=== PATIENT | male | born 1965 | race American Indian/Alaskan Native ===

== ENCOUNTER 2021-11-04 02:38 | Emergency (ER) | payer SELFPAY ==
[2021-11-04] MEDS ORDERED: LIDOCAINE 1%/EPINEPHRINE 1:100,000 VIAL (20 ML) INFILTRATI ONE (06:14)
[2021-11-04] MEDS ORDERED: LIDOCAINE (1%) 10 MG/1 ML VIAL 20 ML MDV INFILTRATI ONE (08:20)
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
[2021-11-04] MEDS ORDERED: TETANUS,DIPHTHERIA TOXOID ADULT 0.5 ML INJ IM ONE (11:00)
[2021-11-04] MEDS ORDERED: TETANUS,DIPH,PERTUSS(ACELL) VACCINE 0.5 ML SYRINGE IM ONE (11:06)
[2021-11-04 11:32] VITALS: BP 145/90
== END 2021-11-04 11:32 | disposition home or self-care (01) ==
LOC: ED 02:38
DX: S41.011A Laceration without foreign body of right shoulder, initial encounter (principal); F17.200 Nicotine dependence, unspecified, uncomplicated; F10.20 Alcohol dependence, uncomplicated; Y08.89XA Assault by other specified means, initial encounter; Y93.89 Activity, other specified; Y92.89 Other specified places as the place of occurrence of the external cause; Y99.8 Other external cause status
CPT/HCPCS: 12014; 90471; 90714; 96372; 99283; J3490

== ENCOUNTER 2021-12-12 18:48 | Emergency (ER) | payer SELFPAY ==
[2021-12-13 00:45] LABS: Basophils % (Auto) 0.8 % (0.0-1.8); Eosinophils # (Auto) 0.2 K/mm3 (0.0-0.4); Hematocrit 40.3 % (35.5-45.6); Lymphocytes # (Auto) 1.4 K/mm3 (1.2-5.4); Mean Corpuscular HGB Conc 32 % (32-34); Mean Corpuscular Volume 97 fl (84-94); Monocytes # (Auto) 0.5 K/mm3 (0.0-0.8); Monocytes % (Auto) 9.7 % (0.0-7.3); Platelet Count 216 K/mm3 (140-440); Red Blood Count 4.14 M/mm3 (3.65-5.03); Red Cell Distribution Width 14.1 % (13.2-15.2)
[2021-12-13 00:46] VITALS: BP 133/75
[2021-12-13 00:52] LABS: Alanine Aminotransferase 31 units/L (7-56); Albumin 3.9 g/dL (3.9-5); BUN/Creatinine Ratio 19; Blood Urea Nitrogen 21 mg/dL (9-20); Calcium 8.6 mg/dL (8.4-10.2); Hemolysis Index 15
[2021-12-13 01:14] LABS: Mucus,Urine FEW /HPF
[2021-12-13 01:28] LABS: Color,Urine Yellow (Yellow)
--- NOTE | 2021-12-13 01:47 | Emergency Department Report ---
ED Medical Clearance HPI - General Chief complaint: Medical Clearance Stated complaint: IRON Time Seen by Provider: 12/13/21 00:00 Source: patient Mode of arrival: Ambulatory - History of Present Illness Initial comments: 55 yo black male with no pmh presents to ed for evaluation of possible low hct. He states that he went to give plasma, and when they tested his hct, it was low, so he came here for further evaluation. He denies any c/o at this time. Reason for Medical Clearance: laboratory abnormality Associated Symptoms: denies: chest pain, shortness of breath, palpitations, cough, fever/chills, headaches Treatments Prior to Arrival: none Allergies/Adverse reactions: Allergies Allergy/AdvReac Type Severity Reaction Status Date / Time No Known Allergies Allergy Verified 12/12/21 20:38 ED Review of Systems ROS: Stated complaint: IRON Other details as noted in HPI Comment: All other systems reviewed and negative Constitutional: denies: chills, fever Respiratory: denies: shortness of breath Cardiovascular: denies: chest pain, palpitations Gastrointestinal: denies: abdominal pain, nausea, vomiting Musculoskeletal: denies: back pain Neurological: denies: headache, weakness ED Past Medical Hx - Past Medical History Previous Medical History?: No - Surgical History Past Surgical History?: No - Social History Smoking Status: Current Some Day Smoker ED Physical Exam - General Limitations: No Limitations General appearance: alert, in no apparent distress - Head Head exam: Present: atraumatic, normocephalic - Eye Eye exam: Present: normal appearance. Absent: conjunctival injection - ENT ENT exam: Present: normal exam, normal orophraynx - Neck Neck exam: Present: normal inspection - Respiratory Respiratory exam: Present: normal lung sounds bilaterally. Absent: respiratory distress, wheezes, chest wall tenderness - Cardiovascular Cardiovascular Exam: Present: regular rate, normal heart sounds - GI/Abdominal GI/Abdominal exam: Present: soft, normal bowel sounds. Absent: distended, tenderness - Extremities Exam Extremities exam: Present: normal inspection, normal capillary refill - Back Exam Back exam: Present: normal inspection. Absent: CVA tenderness (R), CVA tenderness (L) - Neurological Exam Neurological exam: Present: alert, oriented X3, normal gait - Psychiatric Psychiatric exam: Present: normal affect, normal mood - Skin Skin exam: Present: warm, dry, intact, normal color ED Course Vital Signs 12/12/21 12/12/21 12/13/21 20:35 20:38 00:43 Temperature 98.6 F 98.7 F Pulse Rate 62 72 Respiratory 18 17 18 Rate Blood Pressure 165/103 132/72 [Left] O2 Sat by Pulse 100 100 100 Oximetry 12/13/21 00:45 Temperature Pulse Rate 73 Respiratory 18 Rate Blood Pressure 133/75 [Left] O2 Sat by Pulse 100 Oximetry ED Medical Decision Making - Lab Data Result diagrams: 12/13/21 00:27 12/13/21 00:27 - Medical Decision Making 55 yo black male with no pmh presents to ed for evaluation of possible low hct. He states that he went to give plasma, and when they tested his hct, it was low, so he came here for further evaluation. He denies any c/o at this time. Physical exam and work up unremarkable. Patient discharged home to follow up at plasma center or pcp for further evaluation and management. He verbalized u nderstanding of and agreement with plan of care. ED Disposition Clinical Impression: Routine lab draw Disposition: 01 HOME / SELF CARE / HOMELESS Is pt being admited?: No Does the pt Need Aspirin: No Condition: Stable Instructions: Preventive Care 40-64 Years Old, Male Additional Instructions: You did not have any abnormalities in your blood work to include CMP, CBC, and UA. Your hemoglobin was 13 with a hematocrit of 40. Follow-up with your primary care provider as needed. Return to the emergency department as needed. Referrals: VIDA BYNUM MD [Primary Care Provider] - 3-5 Days Time of Disposition: 01:46
[2021-12-13 03:02] LABS: Iron 234 ug/dL (49-181)
== END 2021-12-13 02:07 | disposition home or self-care (01) ==
LOC: ED 18:48
DX: Z01.812 Encounter for preprocedural laboratory examination (principal); F17.200 Nicotine dependence, unspecified, uncomplicated; R79.9 Abnormal finding of blood chemistry, unspecified
CPT/HCPCS: 36415; 80053; 81001; 83540; 85025; 87086; 99283